=== PATIENT | female | born 1995 | race Hispanic/Latino ===

== ENCOUNTER 2023-10-26 18:33 | Emergency (ER) | payer SELFPAY ==
[~2023-10-26] VITALS: Ht 162.6 cm; Wt 104.3 kg
[2023-10-26] MEDS ORDERED: ACET-2079 PO (20:06)
[2023-10-26] MEDS: ketOROlac 60 MG VIAL (30MG/ML) IM ONE (20:30)
[2023-10-26 20:31] VITALS: BP 131/59; PULSE 84; RESP 20; TEMP 97.1; O2SAT 97
== END 2023-10-26 20:41 | disposition home or self-care (01) ==
LOC: EDH 18:33
DX: S62.614A Displaced fracture of proximal phalanx of right ring finger, initial encounter for closed fracture (principal); S60.211A Contusion of right wrist, initial encounter; W18.39XA Other fall on same level, initial encounter; Y93.01 Activity, walking, marching and hiking; Y92.89 Other specified places as the place of occurrence of the external cause; Y99.8 Other external cause status; E10.9 Type 1 diabetes mellitus without complications; Z98.890 Other specified postprocedural states
CPT/HCPCS: 99284; 81025; 73120; 29130; 96372; J1885